=== PATIENT | female | born 1990 | race Caucasian/White ===

== ENCOUNTER → 2018-03-23 | Outpatient (REF) | payer BC, OTHER | LOC: M LAB REF 16:36 | PROVIDERS: ATTEND Nurse Practitioner Family | DX: Z11.59 Encounter for screening for other viral diseases (principal) ==

== ENCOUNTER → 2019-07-20 | Outpatient (REF) | payer BC | LOC: M LAB REF 16:55 | PROVIDERS: ATTEND Registered Nurse | DX: Z02.89 Encounter for other administrative examinations (principal) ==

== ENCOUNTER → 2019-08-23 | Outpatient (REF) | payer BC | LOC: M LAB REF 16:04 | PROVIDERS: ATTEND Registered Nurse | DX: Z11.59 Encounter for screening for other viral diseases (principal); Z02.0 Encounter for examination for admission to educational institution ==

== ENCOUNTER → 2019-11-18 | Outpatient (REF) | payer BC ==
[2019-11-21 17:48] LABS: Lyme Disease IgG/IgM Antibodie <0.91 ISR (0.00-0.90); Lyme Disease IgM Ab Quantitati <0.80 index (0.00-0.79)
== END ==
LOC: M LAB REF 16:20
PROVIDERS: ATTEND Registered Nurse
DX: Z11.59 Encounter for screening for other viral diseases (principal)

== ENCOUNTER → 2023-02-04 | Outpatient (CLI) | payer BC | LOC: M WUC 14:44 | PROVIDERS: ATTEND Nurse Practitioner Family | DX: M25.571 Pain in right ankle and joints of right foot (principal) ==